=== PATIENT | male | born 1995 | race Hispanic/Latino ===

== ENCOUNTER 2017-02-27 18:27 | Emergency (ER) | payer OTHER, SELFPAY ==
[2017-02-27] MEDS ORDERED: Dexamethasone 4 mg/ml Vial ONE (19:42)
[2017-02-27] MEDS ORDERED: Ondansetron ODT 4 MG TAB ONE (19:42)
== END 2017-02-27 19:54 | disposition home or self-care (01) ==
LOC: ERS 18:27
DX: J06.9 Acute upper respiratory infection, unspecified (principal); R11.10 Vomiting, unspecified; F41.9 Anxiety disorder, unspecified; F32.9 Major depressive disorder, single episode, unspecified
CPT/HCPCS: 99283; J1100; Q0162

== ENCOUNTER 2017-08-05 17:24 | Emergency (ER) | payer SELFPAY ==
[2017-08-05] MEDS ORDERED: HYDROcodone/Acetaminophen 10/325 mg Tablet ONE (18:02)
[2017-08-05] MEDS ORDERED: Adacel (T-DAP) 0.5 ML VIAL ONE (18:02)
== END 2017-08-05 18:40 | disposition home or self-care (01) ==
LOC: ERS 17:24
DX: L02.414 Cutaneous abscess of left upper limb (principal); F17.210 Nicotine dependence, cigarettes, uncomplicated; Z71.6 Tobacco abuse counseling; F41.9 Anxiety disorder, unspecified; F32.9 Major depressive disorder, single episode, unspecified
CPT/HCPCS: 10061; 87070; 87077; 87186; 87205; 90471; 90715; 99406

== ENCOUNTER 2017-08-07 13:23 | Emergency (ER) | payer SELFPAY ==
[2017-08-07] MEDS ORDERED: Lidocaine 1% w/Epinephrine 1:100K 20 ML VIAL ONE (15:33)
[2017-08-07 15:46] LABS: #Eosinphils 0.1 thou/uL (0.0-0.7); #Lymphocytes 2.2 thou/uL (1.20-3.40); #Monocytes 0.7 thou/uL (0.11-0.59); #Neutrophils 9.6 thou/uL (1.40-6.50); %Basophils 0.1 % (0.0-1.0); %Eosinophils 1.2 % (0.0-10.0); %Lymphocytes 17.6 % (28.0-48.0); %Monocytes 5.2 % (0.0-4.0); Hemoglobin 15.7 g/dL (14.0-18.0); Mean Corpuscular HGB CONC 33.8 g/dL (32.0-36.0); Mean Corpuscular Hemoglobin 30.6 pg (25.0-35.0); Mean Corpuscular Volume 90.5 fl (77.0-87.0); Mean Platelet Volume 7.9 fL (7.4-10.4); Platelet Count 269 thou/uL (130-400); RBC Distribution Width 11.4 % (11.5-14.5); Red Blood Cell (RBC) Count 5.12 mill/uL (4.00-5.20); White Blood Cell (WBC) Count 12.7 thou/uL (4.8-10.8)
[2017-08-07 16:05] LABS: Anion Gap 10 mmol/L (10-20); BUN (Urea Nitrogen) 10 mg/dL (8.9-20.6); Calc. Creatinine Clearance 0 mL/min (70-130); Calcium 9.9 mg/dL (7.8-10.44); Carbon Dioxide 29 mmol/L (22-29); Chloride 104 mmol/L (98-107); Estimated GFR-MDRD Greater than 90; Glucose 82 mg/dL (70-105); Potassium 4.2 mmol/L (3.5-5.1); Sodium 139 mmol/L (136-145)
[2017-08-07] MEDS ORDERED: Acetaminophen 500 MG TAB ONE (16:38)
== END 2017-08-07 17:03 | disposition home or self-care (01) ==
LOC: ERS 13:23
DX: L03.113 Cellulitis of right upper limb (principal); L03.114 Cellulitis of left upper limb; Z48.817 Encounter for surgical aftercare following surgery on the skin and subcutaneous tissue; F41.9 Anxiety disorder, unspecified; F32.9 Major depressive disorder, single episode, unspecified; F17.210 Nicotine dependence, cigarettes, uncomplicated
CPT/HCPCS: 10061; 80048; 85025; 96365; J2001; J3370

== ENCOUNTER 2017-08-08 20:30 | Emergency (ER) | payer SELFPAY | END 2017-08-08 21:30 | disposition home or self-care (01) | LOC: ERS 20:30 | DX: Z48.01 Encounter for change or removal of surgical wound dressing (principal); Z48.817 Encounter for surgical aftercare following surgery on the skin and subcutaneous tissue; F41.9 Anxiety disorder, unspecified; F32.9 Major depressive disorder, single episode, unspecified | CPT/HCPCS: 99282 ==

== ENCOUNTER 2017-08-11 18:52 | Emergency (ER) | payer SELFPAY ==
[2017-08-11] MEDS ORDERED: Bacitracin Zinc 1 Packet ONE (19:14)
== END 2017-08-11 19:27 | disposition home or self-care (01) ==
LOC: ERS 18:52
DX: Z48.817 Encounter for surgical aftercare following surgery on the skin and subcutaneous tissue (principal); B86 Scabies; F32.9 Major depressive disorder, single episode, unspecified; F41.9 Anxiety disorder, unspecified; F17.210 Nicotine dependence, cigarettes, uncomplicated
CPT/HCPCS: 99282

== ENCOUNTER 2018-08-31 09:48 | Emergency (ER) | payer SELFPAY ==
[2018-08-31 10:45] LABS: #Basophils 0.1 thou/uL (0.0-0.2); #Lymphocytes 2.1 thou/uL (1.20-3.40); #Monocytes 0.4 thou/uL (0.11-0.59); #Neutrophils 3.2 thou/uL (1.40-6.50); %Basophils 1.3 % (0.0-1.0); %Eosinophils 0.6 % (0.0-10.0); %Lymphocytes 36.5 % (21.0-51.0); %Monocytes 6.6 % (0.0-10.0); Hemoglobin 15.3 g/dL (14.0-18.0); Mean Corpuscular HGB CONC 34.2 g/dL (32.0-36.0); Mean Corpuscular Hemoglobin 30.8 pg (27.0-31.0); Mean Corpuscular Volume 90.1 fL (78.0-98.0); Mean Platelet Volume 8.6 fL (7.4-10.4); Platelet Count 238 thou/uL (130-400); Red Blood Cell (RBC) Count 4.97 mill/uL (4.70-6.10); White Blood Cell (WBC) Count 5.9 thou/uL (4.8-10.8)
[2018-08-31 10:48] LABS: Bilirubin Negative (Negative); Blood, Urine Negative (Negative); Clarity CLOUDY (Clear); Glucose, Urine (Dipstick) Negative (Negative); Leukocyte Negative (Negative); Nitrite Negative (Negative); Protein, Urine (Dipstick) Trace mg/dL (Neg-Trace); Specific Gravity, Urine 1.026 (1.002-1.036)
[2018-08-31 11:05] LABS: ALT (SGPT) 23 U/L (8-55); AST (SGOT) 20 U/L (5-34); Albumin 4.6 g/dL (3.5-5.0); Alkaline Phosphatase 93 U/L (40-150); Anion Gap 13 mmol/L (10-20); BUN (Urea Nitrogen) 8 mg/dL (8.9-20.6); Bilirubin, Total 1.3 mg/dL (0.2-1.2); Calc. Creatinine Clearance 0 mL/min (70-130); Calcium 9.3 mg/dL (7.8-10.44); Carbon Dioxide 23 mmol/L (22-29); Chloride 107 mmol/L (98-107); Estimated GFR-MDRD Greater than 90; Globulin 2.9 g/dL (2.4-3.5); Glucose 102 mg/dL (70-105); Potassium 3.5 mmol/L (3.5-5.1); Protein, Total 7.5 g/dL (6.0-8.3); Sodium 139 mmol/L (136-145)
[2018-08-31] MEDS ORDERED: Lidocaine Viscous Sol 2% 15 ml UD Cup ONE (11:19)
[2018-08-31] MEDS ORDERED: Mag-Al 1200 mg/1200 mg/30 ML UDCUP ONE (11:19)
== END 2018-08-31 12:39 | disposition home or self-care (01) ==
LOC: ERS 09:48
DX: K21.9 Gastro-esophageal reflux disease without esophagitis (principal); F41.9 Anxiety disorder, unspecified; F32.9 Major depressive disorder, single episode, unspecified; F17.210 Nicotine dependence, cigarettes, uncomplicated
CPT/HCPCS: 36415; 80053; 81003; 85025; 99284

== ENCOUNTER 2023-04-18 23:26 | Emergency (ER) | payer SELFPAY ==
[2023-04-19 00:27] LABS: #Basophils 0.1 thou/uL (0.0-0.2); #Eosinphils 0.2 thou/uL (0.0-0.7); #Monocytes 0.9 thou/uL (0.11-0.59); #Neutrophils 5.5 thou/uL (1.40-6.50); %Basophils 0.7 % (0.0-1.0); %Eosinophils 1.8 % (0.0-10.0); %Lymphocytes 37.5 % (21.0-51.0); %Monocytes 8.2 % (0.0-10.0); %Neutrophils 51.5 % (42.0-75.0); Hematocrit 46.2 % (42.0-52.0); Hemoglobin 15.8 g/dL (14.0-18.0); Mean Corpuscular HGB CONC 34.2 g/dL (32.0-36.0); Mean Corpuscular Hemoglobin 30.2 pg (27.0-31.0); Mean Corpuscular Volume 88.3 fl (78.0-98.0); Mean Platelet Volume 10.4 fL (7.4-10.4); Platelet Count 298 10x3/uL (130-400); RBC Distribution Width 12.9 % (11.5-14.5); Red Blood Cell (RBC) Count 5.23 mill/uL (4.70-6.10); White Blood Cell (WBC) Count 10.6 10x3/uL (4.8-10.8)
[2023-04-19 02:38] LABS: ALT (SGPT) 20 U/L (8-55); AST (SGOT) 18 U/L (5-34); Albumin 4.7 g/dL (3.5-5.0); Alkaline Phosphatase 95 U/L (40-110); Anion Gap 16 mmol/L (10-20); Bilirubin, Total 0.6 mg/dL (0.2-1.2); Calc. Creatinine Clearance 0 mL/min (70-130); Carbon Dioxide 25 mmol/L (22-29); Chloride 106 mmol/L (98-107); Estimated GFR 114; Glucose 80 mg/dL (70-105); Lipase 34 U/L (8-78); Potassium 5.2 mmol/L (3.5-5.1); Protein, Total 7.7 g/dL (6.0-8.3); Sodium 142 mmol/L (136-145)
[2023-04-19 02:49] LABS: BUN (Urea Nitrogen) 15 mg/dL (8.9-20.6)
== END 2023-04-19 02:53 | disposition home or self-care (01) ==
LOC: ERS 23:26
DX: K92.1 Melena (principal); F17.210 Nicotine dependence, cigarettes, uncomplicated
CPT/HCPCS: 36415; 80053; 82274; 83690; 85025; 99284

== ENCOUNTER 2025-03-01 20:01 | Emergency (ER) | payer SELFPAY ==
[2025-03-01] MEDS ORDERED: Ketorolac Tromethamine 30 MG (1 mL) VIAL ONE (21:58)
[2025-03-01] MEDS ORDERED: Methocarbamol 500 MG TAB ONE (21:59)
== END 2025-03-01 23:34 | disposition home or self-care (01) ==
LOC: ERS 20:01
DX: M62.830 Muscle spasm of back (principal); X50.1XXA Overexertion from prolonged static or awkward postures, initial encounter
CPT/HCPCS: 72125; 72128; 96372; J1885